=== PATIENT | female | born 1990 | race Caucasian/White ===

== ENCOUNTER 2016-11-28 12:42 | Outpatient (CLI) | payer BC ==
[~2016-11-28] VITALS: Ht 180.3 cm; Wt 89.0 kg
[~2016-11-28 12:42] MED LIST: DOCUSATE SODIU100 MG PO; ENDOCET 5-3251 EACH PO; IBUPROFEN800 MG PO; PRENATAL TABLE1 EAC3 PO; PROTONIX40 MG PO; TYLENOL EXTRA500 MG PO
[2016-11-28 12:53] VITALS: BP 107/69
[2016-11-28] MEDS ORDERED: PRENATAL TABLE1 EAC3 PO (13:20)
[2016-11-28] MEDS ORDERED: GAVISCON ES CH1 EACH PO (13:21)
[2016-11-28 15:02] LABS: ADD MIUA? YES; BILIRUBIN SMALL; BLOOD NEGATIVE; COLOR DK YELLOW ((YELLOW)); GLUCOSE (STRIP) NEGATIVE; KETONES TRACE; LEUKOCYTES TRACE; NITRITE NEGATIVE; PH, URINE 5.5 (5-8); PROTEIN (STRIP) 30
[2016-11-28 15:23] VITALS: BP 107/62
[2016-11-28 16:15] LABS: BACTERIA 2+ /HPF; CASTS NONE SEEN /LPF; CRYSTALS NONE SEEN; EPITHELIAL CELLS 1+ /HPF; MUCUS 3+ /LPF; RED BLOOD CELLS 0-5 /HPF (0-5); UCUL ADDED? NO; WHITE BLOOD CELLS 0-5 /HPF (0-5)
== END 2016-11-28 16:15 | disposition home or self-care (01) ==
LOC: LDRP-OP 12:42 → 2WEST 12:43 → LDRP-OP 12-27 14:45
PROVIDERS: Midwife
DX: O21.9 Vomiting of pregnancy, unspecified (principal); R19.7 Diarrhea, unspecified; O99.89 Other specified diseases and conditions complicating pregnancy, childbirth and the puerperium
CPT/HCPCS: 59025; 81003; G0378; J2405; J7120; S0028

== ENCOUNTER 2016-11-28 21:06 | Inpatient (IN) | payer OTHER ==
[~2016-11-28] VITALS: Ht 180.3 cm; Wt 89.5 kg
[~2016-11-28 21:06] MED LIST changes: +GAVISCON ES CH1 EACH PO
[2016-11-28 21:55] VITALS: BP 118/67
[2016-11-28 22:36] LABS: EOSINOPHIL (%) 0.1 % (0-5); IMMATURE GRANULOCYTE (%) 0.8 % (0.0-0.7); IMMATURE GRANULOCYTE COUNT 0.1 K/uL; LYMPHOCYTE COUNT 0.7 K/uL (1.0-2.8); MONOCYTE COUNT 0.7 K/uL (0-0.8); NEUTROPHIL (%) 82.7 % (45-76); NEUTROPHIL COUNT 7.4 K/uL (1.8-6.4)
[2016-11-28 22:44] LABS: HEMATOCRIT 28.7 % (36.0-46.0); MCV 77.4 FL (83-99); PLAT.SUFFICIENCY DECREASED; PLATELET COUNT 92 K/uL (156-360); RBC DIS.WIDTH-CV 16.4 % (11.8-14.6); RBC DIS.WIDTH-SD 46.8 % (39-53); RED BLOOD COUNT 3.71 M/uL (3.80-5.20); USER ID SS
[2016-11-28 23:05] VITALS: BP 121/59
[2016-11-28 23:53] VITALS: BP 111/58
[2016-11-28 23:55] LABS: ALKALINE PHOSPHATASE 157 IU/L (3-129); ANION GAP 9 MEQ/L (2-14); CHLORIDE 102 MEQ/L (99-109); GFR ESTIMATE (CALCULATED) > 59 mL/min/; GLUCOSE 108 mg/dL (70-99); POTASSIUM 3.7 MEQ/L (3.7-5.4); SAMPLE HEMOLYSIS CHECK 0; SAMPLE ICTERIC CHECK 0; SAMPLE LIPEMIA CHECK 0; SODIUM 135 MEQ/L (136-147); TOTAL BILIRUBIN 0.6 MG/DL (0.0-1.0); UREA NITROGEN (BUN) 7 mg/dL (9-23)
[2016-11-29] VITALS (12 sets, daily range): BP systolic 88–126; BP diastolic 52–67
[2016-11-30 07:13] LABS: HEMATOCRIT 27.5 % (36.0-46.0); MCH 24.1 PG (29.0-34.0); MCHC 30.5 G/DL (30.0-36.0); MCV 78.8 FL (83-99); MEAN PLAT.VOLUME 11.4 uM^3 (9.5-12.4); PLATELET COUNT 109 K/uL (156-360); RBC DIS.WIDTH-CV 16.5 % (11.8-14.6); RBC DIS.WIDTH-SD 47.9 % (39-53); RED BLOOD COUNT 3.49 M/uL (3.80-5.20); WHITE BLOOD COUNT 8.9 K/uL (4.1-10.2)
[2016-11-30 07:29] LABS: EOSINOPHIL (%) 1.1 % (0-5); EOSINOPHIL COUNT 0.1 K/uL (0-0.3); IMMATURE GRANULOCYTE (%) 1.4 % (0.0-0.7); IMMATURE GRANULOCYTE COUNT 0.1 K/uL; LYMPHOCYTE COUNT 1.9 K/uL (1.0-2.8); MONOCYTE (%) 9.7 % (3-12); MONOCYTE COUNT 0.9 K/uL (0-0.8); NEUTROPHIL (%) 66.5 % (45-76); NEUTROPHIL COUNT 5.9 K/uL (1.8-6.4)
[2016-11-30 07:58] VITALS: BP 106/60
[2016-11-30 15:30] VITALS: BP 115/65
[2016-11-30 23:13] VITALS: BP 121/70
[2016-12-01 07:40] VITALS: BP 109/70
[2016-12-01] MEDS ORDERED: IBUPROFEN800 MG PO (12:44)
== END 2016-12-01 13:30 | disposition home or self-care (01) | DRG 775 ==
LOC: LDRP-OP 21:06 → 2WEST 21:07
PROVIDERS: Midwife
DX: O99.824 Streptococcus B carrier state complicating childbirth (principal); Z3A.40 40 weeks gestation of pregnancy; Z37.0 Single live birth; O99.02 Anemia complicating childbirth; D50.9 Iron deficiency anemia, unspecified
CPT/HCPCS: 80053; 85025; C1755; G0378; J0595; J2540; J7120